=== PATIENT | male | born 1975 | race Caucasian/White ===

== ENCOUNTER 2017-01-15 19:28 | Observation (INO) ==
[2017-01-15 20:01] LABS: Hematocrit 45.5 % (37.5-50.1); Hemoglobin 16.1 g/dL (12.9-16.9); Mean Corpuscular HGB Conc 35.4 g/dL (31.6-35.5); Mean Corpuscular Hemoglobin 29.9 pg (28.0-33.3); Mean Corpuscular Volume 84.4 fL (83.0-100.0); Mean Platelet Volume 9.3 fL (9.4-12.4); Platelet Count 214 K/mcL (140-400); Red Blood Count 5.39 M/mcL (4.19-5.50); Red Cell Distribution Width 12.2 % (11.5-14.5)
[2017-01-15] MEDS ORDERED: Ketorolac 30 MG/ML VIAL IVP ONE (20:03)
--- NOTE | 2017-01-15 20:06 | Emergency Department Note ---
Disposition Clinical Impression: Acute appendicitis Qualifiers: Acute appendicitis type: unspecified acute appendicitis type Qualified Code(s) : K35.80 - Unspecified acute appendicitis Disposition: Admitted As Inpatient Condition: Good Time of Disposition: 22:32 Abdominal Pain HPI - General Chief Complaint: ED Abdominal Pain Stated Complaint: N/V LUQ pain Time Seen by Provider: 01/15/17 19:47 Source: patient Mode of arrival: ambulatory Limitations: no limitations Nursing Notes Reviewed: Yes Vital Signs Reviewed: Yes - History of Present Illness HPI Narrative: 41-year-old male with history of chronic back pain and narcolepsy presents to the ED via EMS for abdominal pain. He experienced sharp sudden pain in the right abdomen that started in the periumbilical area, now worse in the right lower quadrant, reports 7/10 pain. Pain is nonradiating. It began around 1630 while at rest. Prior to EMS arrival at 1900 he had 4 episodes of nonbloody food content emesis. He took 7.5 Vicodin that did not help with the pain. Denies any new foods, drinks, recent travel, or camping. Denies any nausea at this time. Denies any diarrhea, urinary symptoms, bloody stool, black tarry stool. Denies any recent illness, fever, testicular pain. Denies any history of abdominal surgeries. History of similar symptoms a month ago that resolved within 6 hours but was not medically evaluated at that time. Pain today is worse. He has a family physician. Denies any alcohol use, IV drug use. Pt Subjective Complaint: abdominal pain Onset (ago): hour(s) Pain Scale: 8 - Related Data Home Medications Medication Instructions Recorded Confirmed Hydrocodon-Acetamin 7.5-325/15 7.5 mg PO PRN PRN 01/15/17 01/15/17 Melatonin [Melatin] 3 mg PO HS 01/15/17 01/15/17 Methylphenidate HCl [Ritalin] 20 mg PO DAILY 01/15/17 01/15/17 Allergies Allergy/AdvReac Type Severity Reaction Status Date / Time Penicillins Allergy Hives Verified 01/15/17 19:44 All systems ED: reviewed and negative except as stated. Constitutional: Denies: fever, chills Cardiovascular: Denies: chest pain, dyspnea on exertion Respiratory: Denies: dyspnea Gastrointestinal: Reports: abdominal pain, vomiting. Denies: nausea, diarrhea, melena, hematochezia Genitourinary: Denies: urgency, dysuria, frequency Musculoskeletal: Reports: back pain. Denies: neck pain Integumentary: Denies: rash, abrasion Abdominal Pain PMH - Past Medical History Medical history: Reports: other Male Surgical History: Reports: no surgical history Psychiatric history: Reports: depression - Social History Smoking status: Never smoker Alcohol use: Reports: none Drug use: Reports: none Physical Exam - General Limitations: no limitations General appearance: alert, in no apparent distress - Head Head exam: atraumatic, normocephalic, normal inspection - Eye Eye exam: Present: normal appearance, PERRL, EOMI - ENT ENT exam: normal exam, normal oropharynx, mucous membranes moist - Neck Neck exam: Present: normal inspection, full ROM, trachea midline - Chest Chest inspection: Present: normal inspection, symmetric chest wall rise - Respiratory Respiratory exam: Present: normal lung sounds bilaterally. Absent: respiratory distress, wheezes - Cardiovascular Cardiovascular exam: Present: regular rate, normal rhythm, normal heart sounds. Absent: systolic murmur, diastolic murmur - Abdominal Exam Abdominal exam: Present: soft, tenderness, normal bowel sounds, Rovsing's sign. Absent: distention, guarding, rebound, rigidity, psoas sign, obturator sign, Tovar's sign, tenderness at McBurney's Point Abdominal tenderness: Present: RLQ, mild - Extremities Exam Extremities exam: Present: normal inspection, full ROM, normal capillary refill. Absent: tenderness, pedal edema, calf tenderness - Back Exam Back exam: Present: normal inspection, full ROM. Absent: tenderness, CVA tenderness (R), CVA tenderness (L) - Neurological Exam Neurological exam: Present: alert, oriented X3 - Psychiatric Psychiatric exam: Present: normal affect, normal mood - Skin Skin exam: Present: warm, dry, intact, normal color Course Course Narrative: 13-year-old male presents the ED with right lower quadrant pain. Pain started at 1630. Denies any prior abdominal surgeries. Pain do not improve with Vicodin. He is afebrile with HR 80. He appears in no acute distress. Abdomen is soft nondistended, with some mild tenderness the right lower quadrant. Negative McBurney's point and Rovsing sign. No rigidity or peritoneal signs. Will get CBC, CMP, lipase, CT of the abdomen and pelvis with contrast. Toradol for pain. Suspect possible appendicitis. - Reevaluation(s) Reevaluation #1: Patient has a leukocytosis 15.9. Abdomen continues to be soft and nondistended. CT of the abdomen and pelvis reveals acute appendicitis without free air or abscess. We will keep him NPO. Consult surgery. Morphine and Zofran for symptoms. Patient is agreeable to plan. Time: 22:15 - Consultations Consultation #1: Spoke with on-call surgeon aleksey Mendes to admit for acute appendicitis. Dr. Mao will come down to evaluate patient. No other orders at this time. Time: 22:23 Vital Signs Temperature 98.1 F 01/15/17 19:40 Pulse Rate 80 01/15/17 19:40 Respiratory Rate 18 01/15/17 19:40 Blood Pressure 140/77 01/15/17 19:40 O2 Sat by Pulse Oximetry 100 01/15/17 19:40 Temperature 98.1 F 01/15/17 19:40 Pulse Rate 83 01/15/17 23:01 Respiratory Rate 16 01/15/17 23:01 Blood Pressure 122/85 01/15/17 23:01 O2 Sat by Pulse Oximetry 96 01/15/17 23:01 Oxygen Delivery Oxygen Delivery Room Air Abdominal Pain - Differential Diagnosis Differential Diagnosis: Likely: acute appendicitis - Medical Records Medical records reviewed: Yes I reviewed the patient's medical records. - Lab Data Lab results reviewed: Yes I reviewed the patient's lab results. Result diagrams: 01/15/17 19:52 01/15/17 19:52 Lab Results 01/15/17 01/15/17 01/15/17 Range/Units 19:52 19:52 20:33 WBC 15.9 H (4.3-11.1) K/mcL RBC 5.39 (4.19-5.50) M/mcL Hgb 16.1 (12.9-16.9) g/dL Hct 45.5 (37.5-50.1) % MCV 84.4 (83.0-100.0) fL MCH 29.9 (28.0-33.3) pg MCHC 35.4 (31.6-35.5) g/dL RDW 12.2 (11.5-14.5) % Plt Count 214 (140-400) K/mcL MPV 9.3 L (9.4-12.4) fL Seg Neutrophils % 90.0 % Band Neutrophils % 2.0 (0-4) % Lymphocytes % 6.0 % Monocytes % 2.0 % Neutrophils # 14.6 H (1.6-8.9) K/mcL Lymphocytes # 1.0 (0.6-4.6) K/mcL Monocytes # 0.3 (0.0-1.3) K/mcL Platelet Estimate Normal (Normal) Anisocytosis 1+ A (Not Present) Sodium 139 (136-145) mEq/L Potassium 3.7 (3.5-4.5) mEq/L Chloride 109 (98-109) mEq/L Carbon Dioxide 22 (19-29) mEq/L BUN 9 (8-26) mg/dL Creatinine 1.07 (0.72-1.25) mg/dL Est GFR ( Amer) > 60 (> 60) Est GFR (Non-Af Amer) > 60 (> 60) BUN/Creatinine Ratio 8 (6-26) Glucose 154 H (70-99) mg/dL Calculated Osmolality 290 (280-300) Calcium 10.0 (8.6-10.8) mg/dL Total Bilirubin 1.9 H (0.2-1.2) mg/dL Direct Bilirubin 0.5 (0.0-0.5) mg/dL Indirect Bilirubin 1.4 H (0.0-1.2) mg/dL AST 26 (5-34) Units/L ALT 41 (0-55) Units/L Alkaline Phosphatase 79 (38-126) Units/L Serum Total Protein 7.3 (6.0-8.3) g/dL Albumin 4.3 (3.5-5.0) g/dL Globulin 3.0 (2.4-3.5) g/dL Albumin/Globulin Ratio 1.4 (1.1-2.2) Lipase 16 (8-78) Units/L Urine Color Yellow (Yellow) Urine Clarity Clear (Clear) Urine pH 8.0 (5.0-8.0) pH Units Ur Specific [place] 1.017 (1.010-1.025) Urine Protein Trace (Neg-Trace) mg/dL Urine Glucose (UA) Normal (Normal) mg/dL Urine Ketones Negative (Negative) mg/dL Urine Blood Negative (Negative) Urine Nitrite Negative (Negative) Urine Bilirubin Negative (Negative) Urine Urobilinogen Normal (Normal) mg/dL Ur Leukocyte Esterase Negative (Negative) Urine Microscopic RBC 0-3 (0-3) per hpf Urine Microscopic WBC 0-3 (0-3) per hpf Ur Squamous Epith Cells Many H (None-Few) per lpf Urine Bacteria None Seen (None-Few) per hpf Hyaline Casts None Seen (None-Few) per lpf Ur Culture Indicated? NO (NO) - Radiology Data Radiology results reviewed: Yes I reviewed the patient's radiology results. Abdomen/Pelvis CT 01/15/17 20:02 IMPRESSION: 1. Acute appendicitis. No evidence of abscess or free intraperitoneal air. D/ / Ravin Cruz MD / Ravin Cruz MD Interpreting Provider: Ravin Cruz MD Attestation Statement - Attestation Attestation: I examined this patient and my medical decision-making was reviewed with the FNP/PA/Advanced Practice Nurse/Resident Physician. I agree with the documented findings, disposition and treatment plan as described except to the extent set forth below. Patient emergency department complaining of abdominal pain. Onset today. Degenerative similar episode a few months ago that resolved spontaneously. Vomiting no diarrhea. No fever. States all he ate today was a tangerine. On examination he is in no distress with right-sided tenderness. Plan. Labs and CT scan. Patient with acute appendicitis. Dr. mao in department to evaluate the patient. 2 OR.
[2017-01-15 20:15] LABS: BUN/Creatinine Ratio 8 (6-26); Blood Urea Nitrogen 9 mg/dL (8-26); Carbon Dioxide 22 mEq/L (19-29); Chloride 109 mEq/L (98-109); Glucose 154 mg/dL (70-99); Lipase 16 Units/L (8-78); Osmolality,Calculated 290 (280-300); Potassium 3.7 mEq/L (3.5-4.5); Sodium 139 mEq/L (136-145); eGFR For African Americans > 60 (> 60); eGFR For Non-African Americans > 60 (> 60)
[2017-01-15 20:34] LABS: Alanine Aminotransferase 41 Units/L (0-55); Albumin 4.3 g/dL (3.5-5.0); Albumin/Globulin Ratio 1.4 (1.1-2.2); Alkaline Phosphatase 79 Units/L (38-126); Aspartate Amino Transferase 26 Units/L (5-34); Bilirubin,Direct 0.5 mg/dL (0.0-0.5); Bilirubin,Indirect 1.4 mg/dL (0.0-1.2); Bilirubin,Total 1.9 mg/dL (0.2-1.2); Monocytes # 0.3 K/mcL (0.0-1.3); Neutrophils # 14.6 K/mcL (1.6-8.9); Total Protein 7.3 g/dL (6.0-8.3)
[2017-01-15 20:35] LABS: Anisocytosis 1+ (Not Present); Platelet Estimate Normal (Normal)
[2017-01-15 20:40] LABS: Bilirubin,Urine Negative (Negative); Blood,Urine Negative (Negative); Clarity,Urine Clear (Clear); Color,Urine Yellow (Yellow); Glucose,Urine (UA) Normal (Normal); Ketones,Urine Negative (Negative); Leukocyte Esterase,Urine Negative (Negative); Nitrite,Urine Negative (Negative); Protein,Urine Trace mg/dL (Neg-Trace); Specific Gravity,Urine 1.017 (1.010-1.025); Urobilinogen,Urine Normal (Normal)
[2017-01-15 20:42] LABS: Bacteria,Urine None Seen per hpf (None-Few); Hyaline Casts,Urine None Seen per lpf (None-Few); RBC,Urine 0-3 per hpf (0-3); Squamous Epithelial Cell,Urine Many per lpf (None-Few); WBC,Urine 0-3 per hpf (0-3)
[2017-01-15] MEDS: *HR* Morphine 2 MG/ML SYRINGE IV ONE ×2 (22:54→22:56)
[2017-01-15] MEDS ORDERED: Ondansetron 4 MG/2 ML VIAL ONE (22:54)
[2017-01-15] MEDS ORDERED: *HR* Morphine 2 MG/ML SYRINGE ONE (22:54)
[2017-01-15] MEDS: Ondansetron 4 MG/2 ML VIAL IV ONE ×2 (22:55→22:57)
--- NOTE | 2017-01-16 00:09 | General Surg History&Physical ---
Date of Encounter: 01/15/17 Time of Encounter: 23:25 History of Present Illness Chief complaint: acute appendicitis HPI: Mr. Pantoja is a 41 year old male referred to Surgical Services after presenting to the emergency department with new onset right lower quadrant abdominal pain, nausea and vomiting. The patient was tender in the right lower quadrant with an associated leukocytosis, 15.9. A CT of the abdomen and pelvis demonstrated periappendiceal inflammation and hyperemia of the appendiceal wall. The terminal ileum was described as grossly unremarkable, there was no free intraperitoneal air or abscess. The findings were strongly suggestive of acute appendicitis prompting surgical referral. Past medical history: Depression, chronic back pain and narcolepsy Surgical history: none Allergies: PCN- exposure resulting in hives Medications: Citalopram dose not provided by patient Hydrocodone with acetaminophen 7.5/325 mg 4 times daily when necessary for pain Melatonin 3 mg by mouth daily at bedtime Methylphenidate 20 mg by mouth daily Social history: Patient quit smoking approximately 4 months ago (); he admits to one pack per day for 20 years. The patient denies any illicit drug use. He describes occasional alcohol consumption (holidays). Physical examination: Age-appropriate male who was no acute distress at the time of my examination. The patient had just been medicated with morphine. Temperature 98.1; pulse 80; respirations 18; blood pressure 140/77; SPO2 on room air 100% Skin: Warm, no obvious jaundice Lungs: Clear, no obvious abdominal pain with deep inspiration. Prior to the morphine the patient did not describe any difficulty or pain on inspiration Cardiac: Regular rate, no appreciable murmurs Abdomen: Soft, nontender, no appreciable intra-abdominal masses. No rebound. Bowel sounds were hypoactive Extremities: No obvious clubbing cyanosis or edema Labs: White count 15.9 with hemoglobin 16.1, hematocrit 45.5; platelet count 214 ,000 Electrolytes, BUN, creatinine within normal limits; total bilirubin 1.9; AST 26, ALT 41, alkaline phosphatase 79, Lipase 16 Urinalysis was notable for specific gravity of 1.017 with urine pH 8.0. CT was personally reviewed in the emergency department Impression: A 41-year-old male with abrupt onset right lower quadrant abdominal pain nausea and vomiting. The leukocytosis may be result of the nausea vomiting but also is consistent with presence of early acute appendicitis. CT demonstrated area appendiceal inflammation and hyperemia of the appendiceal wall without evidence of perforation or intra abdominal abscess. My examination of the patient was limited by administration of IV narcotic analgesic effectively eliminating the patient's pain. Despite this, the findings are consistent with early acute appendicitis for which I recommended surgery. The patient is a reasonable candidate for laparoscopic appendectomy but understands that an open appendectomy may become necessary. Risks include hemorrhage, infection, injury to adjacent structures, and possible removal of a normal appendix. The patient will be transferred to a nursing floor to completion of the appendectomy for postoperative care and management. The patient and his family in attendance have expressed understanding and are in agreement with the treatment plan. Consent for surgery has been obtained. Past Med Surg Social Fam HX - Past Medical History Medical history: other Psychiatric history: depression - Social History Smoking Status: Never smoker Alcohol use: none Drug use: none Medications and Allergies Hydrocodon-Acetamin 7.5-325/15 7.5 mg PO PRN PRN 01/15/17 [History] Melatonin [Melatin] 3 mg PO HS 01/15/17 [History] Methylphenidate HCl [Ritalin] 20 mg PO DAILY 01/15/17 [History] Allergies Penicillins Allergy (Verified 01/15/17 19:44) Hives Review of Systems All systems PM: A 10-system review of systems was performed and is negative for pertinent findings except as documented above in the HPI. General Surgery Exam Initial Vital Signs Temp Pulse Resp BP Pulse Ox 98.1 F 80 18 140/77 100 01/15/17 19:40 01/15/17 19:40 01/15/17 19:40 01/15/17 19:40 01/15/17 19:40 Results - Labs 01/15/17 19:52 01/15/17 19:52 Abnormal lab results WBC 15.9 K/mcL (4.3-11.1) H 01/15/17 19:52 MPV 9.3 fL (9.4-12.4) L 01/15/17 19:52 Neutrophils # 14.6 K/mcL (1.6-8.9) H 01/15/17 19:52 Anisocytosis 1+ (Not Present) A 01/15/17 19:52 Glucose 154 mg/dL (70-99) H 01/15/17 19:52 Total Bilirubin 1.9 mg/dL (0.2-1.2) H 01/15/17 19:52 Indirect Bilirubin 1.4 mg/dL (0.0-1.2) H 01/15/17 19:52 Ur Squamous Epith Cells Many per lpf (None-Few) H 01/15/17 20:33 All other labs normal.
[2017-01-16] MEDS ORDERED: Ringers Solution, Lactated 1,000 ML IVC SCH ×2 (00:45→07:40)
[2017-01-16] MEDS ORDERED: *HR* Morphine 2 MG/ML SYRINGE IV ONE (04:43)
[2017-01-16] MEDS ORDERED: *HR* Morphine 2 MG/ML SYRINGE ONE (04:46)
[2017-01-16] MEDS ORDERED: Bupivacaine/EPI 1:200k 0.25%PF 30 ML VIAL ONE (05:13)
--- NOTE | 2017-01-16 05:19 | Anesthesia Evaluation PreOp ---
Date of Encounter: 01/16/17 Time of Encounter: 05:15 - Past History Planned Operation: Lap Appendectomy Cardiac History: Denies any Significant Hx Pulmonary History: Former smoker ED TECH History: Denies Any Significant HX, Other (Chronic Low Back Pain) Other Medical History: Other (Depression, Narcolepsy) Anesthesia History: No Prior Anesthetic Complications Alcohol Use: none Drug use: none Medications and Allergies Hydrocodon-Acetamin 7.5-325/15 7.5 mg PO PRN PRN 01/15/17 [History] Melatonin [Melatin] 3 mg PO HS 01/15/17 [History] Methylphenidate HCl [Ritalin] 20 mg PO DAILY 01/15/17 [History] Allergies Penicillins Allergy (Verified 01/15/17 19:44) Hives - Meds/Allergy Pre-op Review Medications Reviewed: Yes Allergies Reviewed: Yes Beta Blockers on Current Med List: No Anesthesia Results - Labs 01/15/17 19:52 01/15/17 19:52 Anesthesia Exam O2 Sat Height 1.68 m Weight 83.915 kg O2 Sat by Pulse Oximetry 96 O2 Sat by Pulse Oximetry 100 Vital Signs Temp Pulse Resp BP Pulse Ox 98.1 F 80 18 140/77 100 01/15/17 19:40 01/15/17 19:40 01/15/17 19:40 01/15/17 19:40 01/15/17 19:40 Height: 5'6 Weight: 185 lbs NPO (# of Hours): MN Pain Scale: 0 - HEENT Pupil (Motor): Pupils equal, EOMI Mallampati: III Teeth: Edentulous Oral Opening: Less than or equal to 3 - ED TECH LOC: Oriented ED TECH Motor: Normal RUE, Normal LUE, Normal RLE, Normal LLE, Normal Face ED TECH Sensory: Normal: RUE, LUE, RLE, LLE, Face - Cardiac Rhythm: Regular Murmur: None JVD: No Carotid Bruit: No - Pulmonary Breath Sounds: bilateral Clear Respiratory Effort: Symmetrical Anesthesia Assess/Plan ASA Score: 2, E Modified Juliann Scale for Level of Consciousness: Cooperative, oriented, and tranquil Anesthetic Plan: General Monitoring Plan: Standard Monitors Recovery Plan: PACU (Discussed GA, agrees to proceed)
[2017-01-16] MEDS ORDERED: Ondansetron 4 MG/2 ML VIAL ONE (05:28)
[2017-01-16] MEDS ORDERED: *HR* Rocuronium Bromide 50 MG/5 ML VIAL ONE (05:28)
[2017-01-16] MEDS ORDERED: Lidocaine -MPF 2% 2 ML VIAL ONE (05:28)
[2017-01-16] MEDS ORDERED: *HR* Propofol 200 MG/20 ML VIAL IVP ONE (05:28)
[2017-01-16] MEDS ORDERED: Dexamethasone 4 MG/ML VIAL ONE (05:28)
[2017-01-16] MEDS ORDERED: *HR* FentaNYL (PF) 100 MCG/2 ML VIAL ONE (05:28)
[2017-01-16] MEDS ORDERED: Ketorolac 30 MG/ML VIAL ONE (06:07)
[2017-01-16] MEDS ORDERED: Neostigmine Methylsulfate 3 MG/3 ML SYRINGE ONE (06:30)
--- NOTE | 2017-01-16 07:12 | Anesthesia Evaluation Post Op ---
Date of Encounter: 01/16/17 Time of Encounter: 07:20 - Vital Signs Vital Signs: Vital Signs/O2 Sat/Glucose, Most Current Temp Pulse Resp BP Pulse Ox 01/16/17 07:05 78 16 109/76 96 01/16/17 06:55 97.4 F L 60 16 101/67 95 - Lungs Lungs: Clear Ascult./Percussion - Airway Airway: Non-obstructed - Cardiovascular Regular Rate - Mental Status Mental Status: Alert & Oriented, Answers Appropriately - Pain Pain Scale: 0 - Nausea Vomiting Nausea Vomiting: Not Present - Hydration Hydration: NPO - Discharge PostOp Status: Transfer Patient to floor
--- NOTE | 2017-01-16 07:13 | Operative Note ---
Date of procedure: 01/16/17 Pre-op diagnosis: acute appendicitis Post-op diagnosis: same Procedure: laparoscopic appendectomy Complications: none apparent Anesthesia: GETA Local Anesthetics: 0.25% Sensorcaine HCL with Epinephrine 1:200,000 SubQ (cc) ( 20mL) Surgeon: Steven Mao Estimated blood loss (cc): 2 IV fluids (cc): 700 Specimen: appendix Condition: stable Disposition: PACU Procedure in Detail: Patient was brought to the operating room where he was placed supine upon the operating room table. The patient was appropriately identified as to person and procedure. The accuracy of this information was confirmed by the procedure team. The patient was intubated and anesthetized under the supervision of Dr. Bernardo Souza. The abdomen was prepped and draped in the usual sterile manner. No palpable abdominal masses were identified when the patient was examined under anesthesia. Several milliliters of 0.25% bupivacaine with 1-200,000 units epinephrine was infiltrated into the infraumbilical skin. A small transverse incision was made. Dissection was carried to the fascia. Additional bupivacaine with epinephrine was infiltrated into the fascia. The fascia was then grasped, elevated and incised. An 11 mm Xcel port was established. The rigid laparoscope was placed within the obturator to visualize passage through the layers of the anterior abdomen wall. Once the abdominal cavity was accessed, the obturator was replaced by the rigid laparoscope. T he abdomen was insufflated with gaseous carbon dioxide. There was no obvious visible injury from establishing the port. Under direct visualization 2 additional ports were placed in the suprapubic midline and left lower quadrant midclavicular line. Both sites were infiltrated with the bupivacaine/epinephrine solution. The appendix was identified when the cecum was grasped an elevated. The mesoappendix was divided at the junction between the appendix and the cecum. The appendix was transected at its junction with the cecum using an Ethicon ATS 45 mm stapler (blue cartridge). . The mesoappendix was then divided with a second application of the Ethicon ATS stapler (vascular cartridge). Once the appendix was from the surrounding structures, it was placed in an endoscopic pouch and extracted through the infraumbilical opening. The appendix was sent to pathology for further evaluation. The staple lines were examined. Both staple lines appeared intact. Hemostasis was deemed good. A minimal amount of inflammatory fluid in the right paracolic gutter was aspirated with an endoscopic suction device. The instrumentation was then removed, the pneumoperitoneum evacuated. The fascia of the infraumbilical opening was closed with interrupted figure-of- eight 0 Vicryl using S retractors. The skin edges of the port sites were approximated with subcuticular 4-0 Vicryl. The incisions were sealed with Dermabond dermal adhesive. The patient was taken to recovery in stable condition. Needle, sponge, and instrument counts were correct at the close of the case. Total volume of 0.25% bupivacaine with 1-200,000 units epinephrine used during this procedure, 20 mL.
[2017-01-16] MEDS ORDERED: Ringers Solution, Lactated 500 ML IVC ONE (07:40)
[2017-01-16] MEDS ORDERED: *HR* HYDROmorphone (PF) 1 MG/ML SYRINGE IVP PRN (07:40)
[2017-01-16] MEDS ORDERED: *HR* Promethazine 25 MG/ML VIAL IVP PRN (07:40)
[2017-01-16] MEDS ORDERED: Acetaminophen 325 MG TABLET PO PRN (07:40)
[2017-01-16] MEDS ORDERED: *HR* HYDROcodone/Acet 7.5/325 mg TABLET PO PRN (07:40)
[2017-01-16] MEDS ORDERED: Methylphenidate HCl 10 MG TABLET PO SCH (09:00)
[2017-01-16 11:10] VITALS: BP 125/84
--- NOTE | 2017-01-16 12:52 | General Surgery Progress Note ---
Date of Encounter: 01/16/17 Time of Encounter: 12:48 Subjective Patient reports: feels better, tolerating a regular diet Narrative: General Surgery post op progress note / discharge Patient feeling much improved with almost complete resolution of his right lower quadrant abdominal pain. Tolerating diet, no nausea or vomiting. Afebrile, vital signs stable with a pulse 80, respirations 18, blood pressure 125/84. SPO2 on room air 95% Lungs: Clear Abdomen: Soft with minimal port site tenderness by preoperative right lower quadrant abdominal tenderness is significantly diminished Port sites clean and dry; in edges well approximated. Impression: Acute appendicitis, status post laparoscopic appendectomy. Doing well post op. Patient feeling much improved, requesting to be discharged home. Postop status satisfactory for discharge Instructions: Regular diet Patient may shower, wash incisions with soap and water Activity as tolerated; lifting limited to less than 20 pounds Tylenol, ibuprofen, Motrin, Advil etc. as needed for pain Patient has Vicodin 7.5/325 at home which he takes for chronic back pain - no additional prescriptions provided Follow-up my office, 01/21/17, patient to call office in a.m. to make an appointment Objective Vital Signs - Last 8 Hours Temp Pulse Resp BP Pulse Ox 01/16/17 11:05 97.9 F 80 18 125/84 95 01/16/17 10:15 97.9 F 70 16 137/88 94 L 01/16/17 09:15 97.9 F 73 16 105/71 92 L 01/16/17 09:05 81 105/71 93 L 01/16/17 08:15 68 131/74 01/16/17 08:00 68 101/66 93 L 01/16/17 07:45 95 122/66 92 L 01/16/17 07:30 97 108/71 93 L 01/16/17 07:23 97.5 F L 85 16 102/68 95 01/16/17 07:15 110 16 110/79 92 L 01/16/17 07:05 78 16 109/76 96 01/16/17 06:55 97.4 F L 60 16 101/67 95 Intake and Output 01/15/17 01/16/17 01/16/17 22:59 07:59 15:59 Intake Total Output Total Balance Intake: Oral Output: Urine Estimated Blood Loss - Labs 01/15/17 19:52 01/15/17 19:52 - VTE Documentation of Mechanical Device: Intermittent pneumatic compression device Consult Discharge Plan - Plan Referrals: Britton Ham MD [Primary Care Provider] -
--- NOTE | 2017-01-16 12:55 | Discharge Summary ---
Outpatient Proc Discharge Plan - Plan Additional Instructions: Regular diet Patient may shower, wash incisions with soap and water Activities as tolerated; lifting limited to less than 20 pounds Follow-up in office, 01/21/17, patient to call office in a.m. to make an appointment Tylenol, ibuprofen, Motrin, Advil, etc. as needed for pain Patient has Vicodin 7.5/325 at home for chronic back pain; his may be used for any incisional pain not relieved by [id number] medications. No additional prescriptions provided Home Medications: Hydrocodon-Acetamin 7.5-325/15 7.5 mg PO PRN PRN 01/15/17 [History] Melatonin [Melatin] 3 mg PO HS 01/15/17 [History] Methylphenidate HCl [Ritalin] 20 mg PO DAILY 01/15/17 [History] Acetaminophen [Tylenol] 650 mg PO Q6HR PRN #0 tablet 01/16/17 [Rx]
== END 2017-01-16 13:10 | disposition home or self-care (01) ==
LOC: 3NENU 19:28 → EMEROO 19:28 → 3NENU 01-16 00:46
PROVIDERS: ADMIT Surgery; ATTEND Surgery